=== PATIENT | female | born 1995 | race Caucasian/White ===

== ENCOUNTER → 2023-08-14 11:05 | Outpatient (REF) | payer BC, SELFPAY ==
[2023-08-16 16:28] LABS: Quantiferon Mitogen minus NIL >10.00 IU/mL; Quantiferon NIL 0.02 IU/mL; Quantiferon Plus TB1 minus NIL 0.01 IU/mL (0.00-0.34); Quantiferon Plus TB2 minus NIL 0.02 IU/mL (0.00-0.34); Quantiferon TB Gold Plus Negative (Negative)
== END ==
LOC: REG 11:05
PROVIDERS: ATTENDING PHYSICIAN Emergency Medicine; FAMILY PHYSICIAN Family Medicine
DX: Z11.1 Encounter for screening for respiratory tuberculosis (principal)
CPT/HCPCS: 36415; 86480

== ENCOUNTER → 2023-10-02 10:23 | Outpatient (REF) | payer BC, SELFPAY | LOC: RCS 10:23 | PROVIDERS: ATTENDING PHYSICIAN Physician Assistant Medical; FAMILY PHYSICIAN Family Medicine | DX: R00.2 Palpitations (principal); G90.9 Disorder of the autonomic nervous system, unspecified; Z87.74 Personal history of (corrected) congenital malformations of heart and circulatory system; R00.0 Tachycardia, unspecified; R42 Dizziness and giddiness | CPT/HCPCS: 93306 ==

== ENCOUNTER → 2023-11-06 10:06 | Outpatient (REF) | payer BC, SELFPAY | LOC: CPAP 10:06 | PROVIDERS: ATTENDING PHYSICIAN Nurse Practitioner Family | DX: Z11.51 Encounter for screening for human papillomavirus (HPV) (principal); Z12.4 Encounter for screening for malignant neoplasm of cervix; Z01.419 Encounter for gynecological examination (general) (routine) without abnormal findings | CPT/HCPCS: 87624; G0123 ==

== ENCOUNTER 2024-03-04 10:29 | Emergency (ER) | payer BC, SELFPAY ==
[2024-03-04 10:46] VITALS: BP 119/77
[2024-03-04 10:47] VITALS: BP 119/77
[2024-03-04 11:00] VITALS: BMI 23.9
--- NOTE | 2024-03-04 11:16 | ED.GENMED ---
History of Present Illness
General
Chief Complaint: Abdominal Symptoms
Source: patient
Exam Limitations: none
Time Seen by Provider: 03/04/24 10:58
Nursing documentation reviewed up to this point in time: agreed with
History of Present Illness
History of Present Illness:
28-year-old female with no significant past medical history presents stating she has had lower abdominal cramps with 'visible peristalsis' with pain 8-9/10 earlier today, now her pain is 4/10 and she declines when pain med offered.
She states she did eat a lot more than usual yesterday and at 7 PM last night she felt sweaty, nauseous and had a solid stool followed by liquid diarrheal stool.
She slept fairly well through the night with a couple of episodes of cramping pains. This morning she had diarrhea and when she wiped there was pink mucus on the toilet paper and since then she has had 2 more watery liquid bloody stools, last stool
was about an hour ago. She feels 'a little lightheaded.' She denies chest pain or trouble breathing. Denies urgency frequency or burning with urination.
Past History
Past History
ED Past Medical History: None
ED Past Surgical History: None
Social History
Tobacco: Non-smoker
Alcohol: None
Living: other (with fiance)
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)
Review of Systems
Review of Systems
Allergies reviewed?: Yes
All Other Systems: ROS reviewed and negative except as documented in HPI and ROS
Constitutional: Denies fever
Respiratory: Denies trouble breathing
Cardiac: Denies chest pain
ABD/GI: Reports abdominal pain, nausea, diarrhea and bloody stools; Denies vomiting or anorexia
: Denies dysuria, frequency or difficulty voiding
Musculoskeletal: Reports no symptoms
Skin: Reports no symptoms
Neurological: Reports no symptoms
Phy Exam
Physical Exam
Physical Exam:
GENERAL: No acute distress. A&Ox3.
CONSTITUTIONAL: Afebrile.
EYES: clear, conjunctivae normal
ENMT: moist mucus membranes, Pharynx nl
RESPIRATORY: Regular respirations, nonlabored, lungs clear.
CARDIOVASCULAR: Regular rate and rhythm, no murmurs, no rubs.
GI: Soft, tender across lower abdomen, non distended, normal BS
Rectal: no visible or palpable hemorrhoids, no stool, clear mucus hematest neg
MUSCULOSKELETAL: Moves with ease. Well perfused.
SKIN: Warm, dry, pink
PSYCH: Normal mood and affect. Well kept, interactive and appropriate
NEUROLOGIC: Awake, alert and oriented. No focal neurological deficits
Course
Orders/Labs/Results
Orders:
Orders
03/04/24 10:59
Test Result ONCE
03/04/24 11:09
Complete Blood Count/With Diff Urgent
Comprehensive Metabolic Panel Urgent
HCG, Serum Qualitative Screen Urgent
Comment: Notify provider if positive test present
Lipase Urgent
03/04/24 11:11
CT Abd/pel W Iv And Oral Contr Urgent
Comment:
Reason For Exam: pain across lower abd, bloody stool
Iohexol [Omnipaque] See Protocol PO NOW STA
03/04/24 11:13
Iohexol [Omnipaque] 50 ml .ROUTE .[facility]
03/04/24 11:15
0.9% Sodium Chloride 1000 ml [Nss] 1,000 ml IV BOLUS
03/04/24 12:43
Urinalysis Reflex To Culture Urgent
Date Specimen was Collected: 03/04/24
Time Specimen was Collected: 12:40
Abnormal Lab Results
03/04/24
11:09
RBC 4.13 L 10^6/uL
(4.20-5.40)
Hct 35.3 L %
(37.0-47.0)
03/04/24 11:09
03/04/24 11:09
Vital Signs
Initial and Last Documented VS:
Initial Vital Signs
Temp Pulse Resp BP Pulse Ox
98.9 F 88 18 119/77 97
03/04/24 10:46 03/04/24 10:46 03/04/24 10:46 03/04/24 10:46 03/04/24 10:46
Last Documented Vital Signs
Temp Pulse Resp BP Pulse Ox
98.0 F 72 14 122/77 100
03/04/24 10:47 03/04/24 14:30 03/04/24 14:30 03/04/24 14:00 03/04/24 14:30
MDM/Problems Addressed
Differential Diagnosis Includes:
hemorrhoid, fissure, bleeding diverticula, colitis, diverticulitis, IBD
MDM/Problems Addressed:
28-year-old female with no significant past medical history presents stating she has had lower abdominal cramps with 'visible peristalsis' with pain 8-9/10 earlier today, now her pain is 4/10 and she declines when pain med offered.
She states she did eat a lot more than usual yesterday and at 7 PM last night she felt sweaty, nauseous and had a solid stool followed by liquid diarrheal stool.
She slept fairly well through the night with a couple of episodes of cramping pains. This morning she had diarrhea and when she wiped there was pink mucus on the toilet paper and since then she has had 2 more watery liquid bloody stools, last stool
was about an hour ago. She feels 'a little lightheaded.' She denies chest pain or trouble breathing. Denies urgency frequency or burning with urination.
Afebrile, NAD
Rectal: no stool, clear mucus hematest neg
11:45 AM:
CBC unremarkable
CMP normal
Lipase normal
hCG negative
U/A neg
CT abd/pelvis radiology report read: IMPRESSION:
1. Trace pelvic free fluid, which may be physiologic.
2. No evidence of intestinal obstruction, bowel inflammatory process, nephrolithiasis, hydronephrosis, cholecystitis, or abscess formation.
Discussed results w pt. Return instructions reviewed. Instructed to have blood work rechecked within next week.
Pt ambulated out with normal gait.
*Critical Care Note
Total Time (30-74mins, 75-104mins- exclusive of procedures): Not Applicable
ED Attending Note
-
Portions of this chart may have been created with voice recognition software.� Occasional wrong word or��sound alike� substitutions may have occurred due to the inherent limitations of voice recognition software.
Discharge Plan
Departure
Patient Disposition: Home (Routine Discharge)
Date of Disposition: 03/04/24
Time of Disposition: 14:36
Patient with high blood pressure during this ER visit?: No
Condition: Good
Discharge Problem:
Abdominal pain, Bloody stool
Instructions: Bloody Stools, Adult ED, Abdominal Pain
Prescriptions:
No Action
spironolactone 50 mg Tablet
50 mg PO DAILY
Zyrtec 10 mg Capsule
10 mg PO DAILY
Control Pill
1 tab PO DAILY
Probiotic
1 tab PO DAILY
ondansetron 4 mg Tablet,Disintegrating
4 mg PO BIDPRN PRN (Reason: nausea/vomiting) Qty: 10 0RF
Referrals:
Tonny Ohara DO [Family Provider] -
Dee Abbasi MD [Active] - Next open appointment
Activity Restrictions/Additional Instructions:
As we discussed, your workup here today shows nothing worrisome
Return here immediately for worsening abdominal pain, worsening rectal bleeding, fever, vomiting or feeling sicker in any way.
Make an appointment with the GI doctor for follow-up
Interventions
Interventions:
*Risk Screen - Suicide Last Done: 03/04/24 10:47
*General Assessment Last Done: 03/04/24 11:01
*Neglect/Abuse Screening Last Done: 03/04/24 10:47
ED- Fall Risk Assessment Last Done: 03/04/24 11:01
*ED COVID-19 Vaccine History Last Done: 03/04/24 11:01
*Nursing Disposition Last Done: 03/04/24 14:47
MJ-Jldqzx-Yvanflthnx Assessment Last Done: 03/04/24 11:01
Discharge Date and Time
Discharge Date/Time: 03/04/24 14:50
Print Language: BENINESE
[2024-03-04] MEDS: OMNIPAQUE 50 ML PO (11:18)
[2024-03-04] MEDS: NSS 1000 IV (11:18)
[2024-03-04 11:21] LABS: % Basophils 0.5 % (0-2); % Eosinophils 0.9 % (0-6); % Immature Granulocytes 0.3 % (0-0.5); % Monocytes 5.4 % (1.7-9.3); % Neutrophils 67.9 % (42.2-75.2); Absolute Eosinophils 0.1 10^3/uL (0-0.7); Absolute Lymphocytes 1.9 10^3/uL (1.2-3.4); Absolute Monocytes 0.4 10^3/uL (0.1-0.6); Absolute Neutrophils 5.3 10^3/uL (1.4-6.5); Hematocrit 35.3 % (37.0-47.0); Hemoglobin 12.3 g/dL (12.0-16.0); Mean Corp Hgb Conc. 34.8 g/dL (33.0-37.0); Mean Corpuscular Hgb 29.8 pg (27.0-31.0); Mean Corpuscular Volume 85.5 fL (81.0-99.0); Mean Platelet Volume 9.9 fL (7.4-10.4); Nucleated Red Blood Cells % 0 %; Platelet Count 234 10^3/uL (130-400); Red Blood Cell Count 4.13 10^6/uL (4.20-5.40); Red Cell Dist. Width 12.1 % (11.5-14.5); White Blood Cell Count 7.8 10^3/uL (4.8-10.8)
[2024-03-04 11:36] LABS: HCG, Serum Qualitative Screen Negative
[2024-03-04 11:39] LABS: ALT (SGPT) 17 U/L (0-35); AST (SGOT) 22 U/L (14-36); Albumin 4.1 g/dl (3.5-5.0); Alkaline Phosphatase 59 U/L (38-126); Blood Urea Nitrogen 12 mg/dl (7-17); Calcium 9.3 mg/dl (8.4-10.2); Carbon Dioxide 25 mmol/L (22-30); Chloride 105 mmol/L (98-107); Estimated Creatinine Clearance 114 ml/min; Glucose 96 mg/dl (70-99); Lipase 73 U/L (23-300); Potassium 4.6 mmol/L (3.5-5.1); Sodium 140 mmol/L (135-145); Total Bilirubin 0.3 mg/dl (0.2-1.3); Total Protein 6.8 g/dl (6.3-8.2); eGFR > 60.00
[2024-03-04 12:00] VITALS: BP 119/75
[2024-03-04 13:00] VITALS: BP 120/66
[2024-03-04 13:04] LABS: Urine Albumin Negative (Neg - Trace); Urine Bilirubin Negative (Negative); Urine Character Clear (Clear); Urine Color Yellow; Urine Glucose Negative (Negative); Urine Ketone Negative (Negative); Urine Leukocyte Negative (Negative); Urine Nitrite Negative (Negative); Urine Occult Blood Negative (Negative); Urine Specific Gravity 1.005 (<1.030); Urine Urobilinogen Negative (Neg - 1+)
[2024-03-04 14:00] VITALS: BP 122/77
== END 2024-03-04 14:50 | disposition home or self-care (01) ==
LOC: EMR 10:29
PROVIDERS: Registered Nurse; EMERGENCY PHYSICIAN Emergency Medicine; FAMILY PHYSICIAN Family Medicine
DX: R10.9 Unspecified abdominal pain (principal); K92.1 Melena
CPT/HCPCS: 99285; 96360; 74177; 80053; 81003; 83690; 84703; 85025; Q9967

== ENCOUNTER → 2024-11-05 16:34 | Outpatient (REF) | payer BC, SELFPAY ==
[2024-11-05 17:27] LABS: % Basophils 0.6 % (0-2); % Eosinophils 1.5 % (0-6); % Immature Granulocytes 0.2 % (0-0.5); % Monocytes 5.5 % (1.7-9.3); % Neutrophils 54.2 % (42.2-75.2); Absolute Eosinophils 0.1 10^3/uL (0-0.7); Absolute Lymphocytes 2.4 10^3/uL (1.2-3.4); Absolute Monocytes 0.3 10^3/uL (0.1-0.6); Absolute Neutrophils 3.4 10^3/uL (1.4-6.5); Hematocrit 41.7 % (37.0-47.0); Hemoglobin 13.9 g/dL (12.0-16.0); Mean Corp Hgb Conc. 33.3 g/dL (33.0-37.0); Mean Corpuscular Hgb 30.7 pg (27.0-31.0); Mean Corpuscular Volume 92.1 fL (81.0-99.0); Mean Platelet Volume 9.9 fL (7.4-10.4); Nucleated Red Blood Cells % 0 %; Platelet Count 243 10^3/uL (130-400); Red Blood Cell Count 4.53 10^6/uL (4.20-5.40); Red Cell Dist. Width 12.1 % (11.5-14.5); White Blood Cell Count 6.2 10^3/uL (4.8-10.8)
[2024-11-05 17:36] LABS: ALT (SGPT) 18 U/L (0-35); AST (SGOT) 21 U/L (14-36); Albumin 4.6 g/dl (3.5-5.0); Alkaline Phosphatase 64 U/L (38-126); Blood Urea Nitrogen 15 mg/dl (7-17); Calcium 9.5 mg/dl (8.4-10.2); Carbon Dioxide 27 mmol/L (22-30); Chloride 106 mmol/L (98-107); Glucose 84 mg/dl (70-99); Iron 93 ug/dl (37-170); Magnesium 1.9 mg/dl (1.6-2.3); Potassium 4.4 mmol/L (3.5-5.1); Sodium 140 mmol/L (135-145); Total Bilirubin 0.5 mg/dl (0.2-1.3); Total Protein 7.6 g/dl (6.3-8.2); eGFR > 60.00
[2024-11-05 17:45] LABS: Percent Saturation 23 % (20-50); Total Iron Binding Capacity 402 ug/dl (265-497)
[2024-11-05 18:08] LABS: TSH Reflex To Free T4 0.94 uIU/ml (0.47-4.68)
[2024-11-05 18:10] LABS: Ferritin 18.3 ng/ml (6.24-137)
[2024-11-05 18:24] LABS: Vitamin B12 269 pg/ml (239-931)
[2024-11-07 16:08] LABS: Lyme Antibody Screen, EIA Negative (Negative)
== END ==
LOC: CLAB 16:34
PROVIDERS: ATTENDING PHYSICIAN Family Medicine
DX: R61 Generalized hyperhidrosis (principal); R25.3 Fasciculation; G44.89 Other headache syndrome; R53.83 Other fatigue
CPT/HCPCS: 36415; 80053; 82607; 82728; 83090; 83540; 83550; 83735; 84443; 85025; 86618

== ENCOUNTER → 2024-11-06 16:32 | Outpatient (REF) | payer BC, SELFPAY | LOC: RAD 16:32 | PROVIDERS: ATTENDING PHYSICIAN Family Medicine | DX: R61 Generalized hyperhidrosis (principal) | CPT/HCPCS: 71046 ==

== ENCOUNTER → 2024-11-15 17:14 | Outpatient (REF) | payer BC, SELFPAY | LOC: CLAB 17:14 | PROVIDERS: ATTENDING PHYSICIAN Family Medicine | DX: R79.89 Other specified abnormal findings of blood chemistry (principal) | CPT/HCPCS: 36415; 83921 ==

== ENCOUNTER 2025-01-29 16:59 | Outpatient (RCR) | payer BC, SELFPAY | END 2025-01-29 23:59 | disposition home or self-care (01) | LOC: RPT 16:59 | PROVIDERS: ATTENDING PHYSICIAN Family Medicine | DX: M54.2 Cervicalgia (principal); Z73.6 Limitation of activities due to disability; M79.601 Pain in right arm; R20.2 Paresthesia of skin; R29.3 Abnormal posture; G89.29 Other chronic pain | CPT/HCPCS: 97010; 97110; 97112; 97140; 97162 ==

== ENCOUNTER 2025-02-10 09:05 | Outpatient (RCR) | payer BC, SELFPAY | END 2025-02-10 23:59 | disposition home or self-care (01) | LOC: RPT 09:05 | PROVIDERS: ATTENDING PHYSICIAN Family Medicine | DX: M54.2 Cervicalgia (principal); Z73.6 Limitation of activities due to disability; M79.601 Pain in right arm; R20.2 Paresthesia of skin; R29.3 Abnormal posture; G89.29 Other chronic pain | CPT/HCPCS: 97010; 97110; 97112; 97140 ==